=== PATIENT | female | born 1980 | race Asian ===

== ENCOUNTER 2020-03-19 12:44 | Outpatient (CLI) | payer BC | END 2020-03-19 20:42 | disposition home or self-care (01) | LOC: MAMMO 12:44 | DX: R92.8 Other abnormal and inconclusive findings on diagnostic imaging of breast (principal) ==

== ENCOUNTER 2020-06-30 13:36 | Outpatient (CLI) | payer BC | END 2020-06-30 20:59 | disposition home or self-care (01) | LOC: MAMMO 13:36 | DX: N60.02 Solitary cyst of left breast (principal) | CPT/HCPCS: G0279 ==

== ENCOUNTER 2020-09-18 08:58 | Emergency (ER) | payer OTHER ==
[~2020-09-18] VITALS: Ht 160 cm; Wt 83.9 kg
[2020-09-18] MEDS ORDERED: COZAAR25 MG PO (09:39)
[2020-09-18 10:28] VITALS: BP 161/100; TEMP 98.6
== END 2020-09-18 10:28 | disposition home or self-care (01) ==
LOC: ED 08:58
PROC: 0HQGXZZ Repair Left Hand Skin, External Approach (ICD-10-PCS; principal; 2020-09-18)
DX: S61.211A Laceration without foreign body of left index finger without damage to nail, initial encounter (principal); W26.0XXA Contact with knife, initial encounter; Y92.233 Cafeteria of hospital as the place of occurrence of the external cause
CPT/HCPCS: 90471; 90715; 99283; J7040

== ENCOUNTER 2020-09-25 07:47 | Emergency (ER) | payer OTHER ==
[~2020-09-25] VITALS: Ht 160 cm; Wt 83.9 kg
[~2020-09-25 07:47] MED LIST: COZAAR25 MG PO
[2020-09-25 08:01] VITALS: BP 136/90; TEMP 98.9
== END 2020-09-25 09:00 | disposition home or self-care (01) ==
LOC: ED 07:47
DX: Z51.89 Encounter for other specified aftercare (principal)

== ENCOUNTER 2020-09-29 08:15 | Emergency (ER) | payer OTHER ==
[~2020-09-29] VITALS: Ht 160 cm; Wt 83.9 kg
[2020-09-29 08:20] VITALS: BP 161/99; TEMP 98
== END 2020-09-29 08:47 | disposition home or self-care (01) ==
LOC: ED 08:15
DX: Z48.02 Encounter for removal of sutures (principal)

== ENCOUNTER 2021-04-15 10:43 | Outpatient (CLI) | payer BC | END 2021-04-15 22:00 | disposition home or self-care (01) | LOC: MAMMO 10:43 | PROVIDERS: ATTEND Internal Medicine | DX: Z12.31 Encounter for screening mammogram for malignant neoplasm of breast (principal) ==

== ENCOUNTER 2021-07-15 14:39 | Outpatient (CLI) | payer BC | END 2021-07-15 20:21 | disposition home or self-care (01) | LOC: MAMMO 14:39 | PROVIDERS: ATTEND Nurse Practitioner Family | DX: N63.20 Unspecified lump in the left breast, unspecified quadrant (principal) | CPT/HCPCS: G0279 ==

== ENCOUNTER 2021-07-23 08:27 | Outpatient (CLI) | payer BC | END 2021-07-23 19:27 | disposition home or self-care (01) | LOC: CT 08:27 | PROVIDERS: ATTEND Nurse Practitioner Family | DX: R10.9 Unspecified abdominal pain (principal) | CPT/HCPCS: 36415; 82565; 84520 ==